=== PATIENT | female | born 1940 | race Caucasian/White ===

== ENCOUNTER 2024-06-22 18:19 | Inpatient (IN) | payer MEDICARE, SELFPAY ==
[2024-06-22] VITALS (8 sets, daily range): BP systolic 153–191; BP diastolic 59–101; PULSE 62–72; RESP 15–22; TEMP 36.6–37; O2SAT 90–99; BMI 14.1
--- NOTE | 2024-06-22 18:46 | XRR_ITS ---
PROCEDURE INFORMATION: Exam: XR Left Hip Exam date and time: 06/22/2024 7:33 PM Age: 84 years old Clinical indication: Injury or trauma; Blunt trauma (contusions or hematomas); Prior surgery; Surgery date: 6+ months; Surgery type: Hysterectomy; EMS arrival from home for fall with loc. C/O left hip pain. Denies hitting head. ; Additional info: Fall, L hip pain TECHNIQUE: Imaging protocol: Radiologic exam of the left hip. Views: 2 or 3 views hip with pelvis when performed. COMPARISON: l spine FINDINGS: Bones/joints: Left femoral neck fracture with no dislocation. There is slight superolateral displacement of the distal fragment. Soft tissues: Unremarkable. XR/XR hip LT 2-3V wo/w pel* [id number] IMPRESSION: Left femoral neck fracture with no dislocation.
--- NOTE | 2024-06-22 18:46 | CTR_ITS ---
PROCEDURE INFORMATION: Exam: CT Head Without Contrast Exam date and time: 06/22/2024 7:41 PM Age: 84 years old Clinical indication: Injury or trauma; Blunt trauma (contusions or hematomas); EMS arrival from home for fall with loc. C/O left hip pain. Denies hitting head. ; Additional info: Fall, loc TECHNIQUE: Imaging protocol: Computed tomography of the head without contrast. Radiation optimization: All CT scans at this facility use at least one of these dose optimization techniques: automated exposure control; mA and/or kV adjustment per patient size (includes targeted exams where dose is matched to clinical indication); or iterative reconstruction. COMPARISON: l spine RADIATION DOSE METRICS: Total DLP (mGy-cm): 1011.98 FINDINGS: Brain: No hemorrhage. Diffuse periventricular white matter disease indicating small vessel disease changes. No mass effect. No collections. Age related volume loss. Cerebral ventricles: No ventriculomegaly. Paranasal sinuses: No significant air-fluid levels noted in the visualized sinuses. Mastoid air cells: Mastoid air cells are aerated with no effusions. Bones: No acute osseous abnormality. Soft tissues: Unremarkable. CT/CT head wo con* [id number] IMPRESSION: No acute intracranial abnormality.
--- NOTE | 2024-06-22 19:39 | XRR_ITS ---
PROCEDURE INFORMATION: Exam: XR Chest Exam date and time: 06/22/2024 7:38 PM Age: 84 years old Clinical indication: Injury or trauma; Blunt trauma (contusions or hematomas); EMS arrival from home for fall with loc. C/O left hip pain. Denies hitting head. TECHNIQUE: Imaging protocol: Radiologic exam of the chest. Views: 1 view. COMPARISON: l spine FINDINGS: Lungs: Diffuse emphysematous changes and scarring. Scarring in the apices. 2.4 cm density projected over the right upper lobe, underlying mass can not be excluded, recommend clinical correlation and follow-up as indicated. Pleural spaces: No pleural effusion or pneumothorax noted. Heart/Mediastinum: There is no cardiomegaly. Bones/joints: No acute osseous abnormality. XR/XR chest 1V [id number] IMPRESSION: 1. No acute findings. 2. 2.4 cm density projected over the right upper lobe, underlying mass can not be excluded, recommend nonemergent CT of the chest as indicated.
--- NOTE | 2024-06-22 20:58 | W.ED.FALL ---
HPI - Fall General: Chief Complaint: Fall Stated Complaint: fall - left hip pain Time Seen by Provider: 06/22/24 18:29 History of Present Illness: This patient is an 84-year-old white female who presents to the emergency department with left hip pain after falling today. She states she fell twice after losing her balance. She denies hitting her head but thinks she may have lost consciousness. Related Data Allergies Allergy/AdvReac Type Severity Reaction Status Date / Time No Known Allergies Allergy Verified 06/22/24 18:40 Review of Systems General: Reports: 10 or more systems reviewed and unremarkable except in HPI and below Musc: Reports: other (Left hip pain/injury.) Physical Exam Const: COMMON NORMALS: no acute distress, patient oriented x3 and no limitations GENERAL APPEARANCE: cooperative and comfortable HENMT: COMMON NORMALS: normocephalic, atraumatic, Normal nasal mucous membranes and turbinates present, moist oral mucous membranes and oropharynx normal HEAD & SCALP: normal to inspection, normocephalic and atraumatic FACE & SINUS: normal facial exam NOSE: Normal nasal mucous membranes and turbinates present Eye: COMMON NORMALS: Equal, round and reactive pupils present, EOMs intact bilaterally and conjunctivae normal GENERAL EYE: appearance normal, both eyes and all related structures CONJUNCTIVA: Yes conjunctivae normal PUPIL: Yes Equal, round and reactive pupils present Neck/C-Spine: COMMON NORMALS: supple and no JVD Chest: COMMONS NORMALS: normal inspection of the chest Resp: COMMON NORMALS: normal respiratory effort and clear to auscultation bilaterally AUSCULTATION: clear to auscultation bilaterally Cardio: COMMON NORMALS: no JVD, regular rate, regular rhythm, No gallops present (Cardio), No murmurs present (Cardio) and No rub (Cardio) RATE: regular rate RHYTHM: regular rhythm GI: COMMON NORMALS: Normal to inspection, nondistended, normoactive bowel sounds present, Soft to palpation and non-tender AUSCULTATION: Yes normoactive bowel sounds PALPATION: Yes Soft to palpation : COMMON NORMALS: Yes no CVA tenderness BLADDER/KIDNEY EXAM: Yes no CVA tenderness Back/Pelvis: COMMON NORMALS: no CVA tenderness and thoracic and lumbar spine normal to inspection Extremity: NARRATIVE EXTREMITY EXAM: Significant pain with minimal range of motion of the left hip. Neuro: COMMON NORMALS: patient oriented x3 and CN's II-XII intact bilaterally Psych: COMMON NORMALS: mental status grossly normal, Normal thought process present and cooperative THOUGHT PROCESS: Normal thought process present Skin: COMMON NORMALS: no rashes or lesions noted, turgor normal and no jaundice GENERAL SKIN EXAM: no rashes or lesions noted and turgor normal Course Vital Signs: Vital signs: Vital Signs Temperature 97.9 F 06/22/24 18:29 Pulse Rate 71 06/22/24 18:29 Respiratory Rate 22 H 06/22/24 18:29 Blood Pressure 168/101 06/22/24 18:29 Pulse Oximetry 95 06/22/24 18:29 Oxygen Delivery Me thod Room Air 06/22/24 18:29 MDM - Fall Medical Decision Making X-ray of the left hip reveals a left femoral neck fracture. I discussed the case with Dr. Quiroz, orthopedist. He would like the patient admitted to the hospitalist. I then spoke with Dr. Rm. Patient will be admitted. She is stable. Head CT was read by the radiologist as normal. Chest x-ray read by the radiologist. Possible right lung mass. Lab Data Radiology Impressions Head CT 06/22/24 18:46 IMPRESSION: No acute intracranial abnormality. Hip/Pelvis X-Ray 06/22/24 18:46 IMPRESSION: Left femoral neck fracture with no dislocation. Chest X-Ray 06/22/24 19:39 IMPRESSION: 1. No acute findings. 2. 2.4 cm density projected over the right upper lobe, underlying mass can not be excluded, recommend nonemergent CT of the chest as indicated. All radiology interpretation(s) finalized by discharge Discharge Plan Discharge Condition: Stable Referrals: Lanette Almaraz APN [Primary Care Provider] - Print Language: Polish Coding Level of Care Code ED Roofing Applicator for Carroll Sy
[2024-06-22] MEDS: morphine 4 mg/mL SDV 1 mL 2 MG IVP ×2 (21:28→22:54)
[2024-06-22] MEDS: ondansetron 2 mg/ML SDV 2 mL 4 MG IVP (21:28)
--- NOTE | 2024-06-22 21:33 | PM.HP ---
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 Patient is stating that she went outside to close the gate, she was walking on the lennie surface when lost balance and fell on the ground twice. Not endorsing chest pain palpitations or syncope. She was not able to put any weight on her leg, she was brought to the ER for further evaluation where she was diagnosed with left hip fracture. Patient does not take any anticoagulating agent. Takes multi medications for her blood pressure. Currently she is hemodynamically stable, on room air, I have requested Osorio catheter placement. Clinically patient looks very dry. Review of Systems Const: Denies: fever(s) Eyes: Denies: change in vision ENMT: Denies: throat pain Card: Denies: chest pain Musc: Reports: back pain and extremity pain Medications/Allergies Home Medications ?Medication ?Instructions ?Recorded ?Confirmed ?Last Taken ?Type amlodipine 10 mg tablet 10 mg PO DAILY 06/22/24 06/22/24 Unknown History aspirin 81 mg capsule 81 mg PO DAILY 06/22/24 06/22/24 Unknown History levothyroxine 75 mcg tablet 75 mcg PO DAILY 06/22/24 06/22/24 Unknown History lorazepam 0.5 mg tablet 0.5 mg PO TID PRN Anxiety 06/22/24 06/22/24 Unknown History metoprolol succinate 50 mg 100 mg PO DAILY 06/22/24 06/22/24 Unknown History tablet,extended release 24 hr olmesartan 40 mg tablet 40 mg PO DAILY 06/22/24 06/22/24 Unknown History roflumilast 500 mcg tablet 500 mcg PO DAILY 06/22/24 06/22/24 Unknown History (Daliresp) tramadol 50 mg tablet 50 mg PO PRN 06/22/24 06/22/24 Unknown History Allergies Allergy/AdvReac Type Severity Reaction Status Date / Time No Known Allergies Allergy Verified 06/22/24 18:40 PFSH Acute PFSH: Medical History Activity involving grilling or smoking food Squamous cell lung cancer Pneumothorax Hypertension Vitals/I&O/Wt Last Vital Signs Temp 97.9 F 06/22/24 18:29 Pulse 72 06/22/24 21:31 Resp 16 06/22/24 21:31 BP 171/59 06/22/24 21:31 Pulse Ox 99 06/22/24 21:31 O2 Del Method Room Air 06/22/24 21:31 Weight last 48 hrs Weight 40.823 kg Physical Exam Narrative: Patient is awake and alert Clinically dry GCS 15 No active chest pain or shortness of breath Currently on room air hemodynamically stable Clinically dry Abdomen soft Lower extremity no edema No neurovascular compromise of left leg Family is at the bedside Appears stated age Sarcopenia Protein calorie malnourishment A&P Assessment and plan (1) Femoral neck fracture: Qualifiers: Encounter type: initial encounter Fracture type: closed Laterality: left Qualified Code(s): S72.002A - Fracture of unspecified part of neck of left femur, initial encounter for closed fracture (2) Activity involving grilling or smoking food: Plan Femoral neck fracture Ground-level fall No palpitation or chest pain No prior history of [place] CHF or PCI, no history of diabetes, does not take insulin, no sign of chronic kidney disease, RCRI class I risk Patient clinically not in any distress Stating that very active for her age, she mows her own lawn At this point no preoperative cardiac workup needed, Please note she has history of squamous cell lung cancer, few months ago suffered from pneumothorax after lung biopsy, uses 2 L of oxygen only at nighttime, no active distress doing well on room air Will request DuoNeb treatment Hypertension: Continue levothyroxine, metoprolol, amlodipine, hold olmesartan preoperative Optimize antihypertensive regimen before discharge Patient is stating that she is DNR/DNI but for sake of surgery she is okay with intubation DVT prophylaxis: SCDs Orthopedics consulted N.p.o. after midnight Opioids along bowel regimen PDMP PDMP Reviewed: Not Reviewed Attestations Medical Necessity Statement*: More than 2 midnights anticipated Diagnoses Femoral neck fracture S72.002A Encounter type: initial encounter Fracture type: closed Laterality: left Activity involving grilling or smoking food Y93.G2
[2024-06-22 23:42] LABS: Estmated Average Glucose 105; Hemoglobin A1C 5.3 % (4.0-6.0)
[2024-06-23] VITALS (21 sets, daily range): BP systolic 100–183; BP diastolic 50–90; PULSE 63–100; RESP 15–18; TEMP 36.4–37.1; O2SAT 94–100
[2024-06-23 00:03] LABS: Vitamin B12 392 pg/mL (232-1245)
[2024-06-23] MEDS: levothyroxine 75 mcg Tablet PO (06:09)
[2024-06-23] MEDS: morphine 4 mg/mL SDV 1 mL 2 MG IVP (06:09)
[2024-06-23 07:07] LABS: Basophils % 0.2 %; Eosinophils % 0.4 %; Hematocrit 34.9 % (36-47); Lymphocytes # 1.1 10^3/uL (0.8-4.8); Lymphocytes % 12.6 %; Mean Corpuscular HGB Conc 30.9 g/dL (30-55); Mean Corpuscular Hemoglobin 27.2 pg (27-33); Mean Corpuscular Volume 87.9 fl (85-98); Mean Platelet Volume 11.4 fL (7.4-10.4); Monocytes # 0.6 10^3/uL (0.2-0.9); Monocytes % 7.5 %; Neutrophils # 6.72 10^3/uL (1.8-7.7); Neutrophils % 78.8 %; Nucleated Red Blood Cells % 0 %; Platelet Count 244 10^3/cmm (157-399); Red Blood Count 3.97 10^6/uL (3.85-5.65); Red Cell Distribution Width 15.1 % (12.1-15.1); White Blood Count 8.52 10^3/uL (3.29-11.43)
[2024-06-23 07:33] LABS: Anion Gap 14.2 (5-19); Blood Urea Nitrogen 15 mg/dL (8-23); Calcium 8.7 mg/dL (8.5-10.5); Carbon Dioxide 24 mmol/L (22-29); Chloride 102 mmol/L (98-107); Glucose 119 mg/dL (65-115); Osmolality Calculated 284 mOsm/kg (285-295); Phosphorus 3.1 mg/dL (2.5-4.5); Potassium 4.2 mmol/L (3.5-5.1); Sodium 136 mmol/L (136-145)
--- NOTE | 2024-06-23 07:36 | PM.CONSULT ---
Providers/Reason For Consult Consulting Physician/Specialty*: Hospitalist Reason for Consult*: Left femoral neck fracture Attending Physician: Karrie Rm MD Primary Care Provider: Lanette Almaraz APN History of Present Illness History of Present Illness Dione Aguayo is a 84 year old female when outside to let dogs out. Which came back she fell down twice sustaining a left femoral neck fracture Medications/Allergies Home Medications ?Medication ?Instructions ?Recorded ?Confirmed ?Last Taken ?Type amlodipine 10 mg tablet 10 mg PO DAILY 06/22/24 06/22/24 Unknown History aspirin 81 mg capsule 81 mg PO DAILY 06/22/24 06/22/24 Unknown History levothyroxine 75 mcg tablet 75 mcg PO DAILY 06/22/24 06/22/24 Unknown History lorazepam 0.5 mg tablet 0.5 mg PO TID PRN Anxiety 06/22/24 06/22/24 Unknown History metoprolol succinate 50 mg 100 mg PO DAILY 06/22/24 06/22/24 Unknown History tablet,extended release 24 hr olmesartan 40 mg tablet 40 mg PO DAILY 06/22/24 06/22/24 Unknown History roflumilast 500 mcg tablet 500 mcg PO DAILY 06/22/24 06/22/24 Unknown History (Daliresp) tramadol 50 mg tablet 50 mg PO PRN 06/22/24 06/22/24 Unknown History Allergies Allergy/AdvReac Type Severity Reaction Status Date / Time No Known Allergies Allergy Verified 06/22/24 18:40 Current Medications Generic Name Dose Route Start Last Admin Trade Name Freq PRN Reason Stop Dose Admin Levothyroxine Sodium 75 mcg 06/23/24 06:00 06/23/24 06:09 Levothyroxine 75 Mcg Tablet PO 75 mcg QAM RILEY Administration Morphine Sulfate 2 mg 06/22/24 22:18 06/23/24 06:09 Morphine 4 Mg/Ml Sdv 1 Ml IVP 2 mg Q4H PRN Administration SEVERE PAIN PFSH Acute PFSH: Medical History Activity involving grilling or smoking food Squamous cell lung cancer Pneumothorax Hypertension Vitals/I&O/Wt Last Vital Signs Temp 98.7 F 06/23/24 07:00 Pulse 74 06/23/24 07:00 Resp 17 06/23/24 07:00 BP 179/77 06/23/24 07:00 Pulse Ox 97 06/23/24 07:00 O2 Del Method Nasal Cannula 06/23/24 07:00 O2 Flow Rate 2 06/23/24 07:00 06/22/24 06/23/24 06/23/24 22:59 06:59 14:59 Output Total 875 / 875 Balance -875 / -875 Weight last 48 hrs Weight 105 lb Weight 90 lb Weight 90 lb Physical Exam Narrative: Alert and oriented x 3 Head is normocephalic atraumatic Respirations are intact No evidence of any rashes or infection 5/5 strength in bilateral upper and lower extremities Sensation intact in all extremities Deep tendon reflexes 2 out of 4 bilateral upper and lower extremities Left leg shortened and externally rotated Urinary Catheter Management: Osorio: Cath Placed During This Visit: yes Reason for Continuing Indwelling Catheter: Perioperative Use in Selected Surgeries Urinary Catheter Date of Insertion: 06/22/24 Urinary Catheter Time of Insertion: 23:34 Data 06/23/24 05:50 06/23/24 05:50 A&P Assessment and plan (1) Femoral neck fracture: Plan to do a left hip hemiarthroplasty this morning. I had an open and honest discussion with the patient about the risks, benefits and alternatives to both surgical and nonsurgical treatment. The patient verbalized understanding of the inherent unpredictability associated with surgery. Risk of surgery were discussed including, but not limited to, infection, bleeding, temporary and permanent nerve damage, continued pain, stiffness, incomplete healing, need for revision surgery, blood clot and other complications. The patient verbalized understanding that there is spine is elective in nature and if they find any of these risks to be unacceptable then they should choose not to have the surgery. The patient verbalized understanding of these risks and elected to proceed with the surgery. Qualifiers: Encounter type: initial encounter Fracture type: closed Laterality: left Qualified Code(s): S72.002A - Fracture of unspecified part of neck of left femur, initial encounter for closed fracture PDMP PDMP Reviewed: Not Reviewed Coding Level of Care Code Acute Code for Chg Fwd Diagnoses Femoral neck fracture S72.002A Encounter type: initial encounter Fracture type: closed Laterality: left
[2024-06-23] MEDS: ceFAZolin 1,000 mg SDV 1000 MG IVP ×2 (07:46→16:32)
--- NOTE | 2024-06-23 07:50 | ANES.PREANE2 ---
Pre-Anesthetic Assessment Height/Weight: Height 1.7 m Weight 47.627 kg Temp Pulse Resp BP Pulse Ox O2 Del Method O2 Flow Rate 98.7 F 74 17 179/77 97 Nasal Cannula 2 06/23/24 07:00 06/23/24 07:00 06/23/24 07:00 06/23/24 07:00 06/23/24 07:00 06/23/24 07:00 06/23/24 07:00 Operation Date: 06/23/24 08:00 Proposed Procedures p Hemiarthroplasty Hip(Left) - Earle Quiroz, DO Familial anesthetic complications: None Was Beta Rosario taken within 24 hours: N/A Was Clonidine taken within 24 hours: N/A Last intake: Intake Last Liquid Date 06/22/24 Last Liquid Time 23:00 Last Solid Date 06/22/24 Social Tobacco and No alcohol Exam alert, oriented x 3, clear to auscultation bilaterally and regular rate & rhythm Airway Mallampati: Class I Dentition: other (NO teeth) Pulmonary Chronic Obstructive Pulmonary Disease (2 L O2 at night) CV/HEM Hypertension Metabolic Thyroid Disease [facility] frailty Anesthetic Plan ASA status: 3 Anesthesia: General Risk of > 500 ml blood loss (7ml/kg in children): No Medications/Allergies Home Medications ?Medication ?Instructions ?Recorded ?Confirmed ?Last Taken ?Type amlodipine 10 mg tablet 10 mg PO DAILY 06/22/24 06/22/24 Unknown History aspirin 81 mg capsule 81 mg PO DAILY 06/22/24 06/22/24 Unknown History levothyroxine 75 mcg tablet 75 mcg PO DAILY 06/22/24 06/22/24 Unknown History lorazepam 0.5 mg tablet 0.5 mg PO TID PRN Anxiety 06/22/24 06/22/24 Unknown History metoprolol succinate 50 mg 100 mg PO DAILY 06/22/24 06/22/24 Unknown History tablet,extended release 24 hr olmesartan 40 mg tablet 40 mg PO DAILY 06/22/24 06/22/24 Unknown History roflumilast 500 mcg tablet 500 mcg PO DAILY 06/22/24 06/22/24 Unknown History (Daliresp) tramadol 50 mg tablet 50 mg PO PRN 06/22/24 06/22/24 Unknown History Allergies Allergy/AdvReac Type Severity Reaction Status Date / Time No Known Allergies Allergy Verified 06/22/24 18:40 Current Medications Generic Name Dose Route Start Last Admin Trade Name Juan PRN Reason Stop Dose Admin Levothyroxine Sodium 75 mcg 06/23/24 06:00 06/23/24 06:09 Levothyroxine 75 Mcg Tablet PO 75 mcg QAM RILEY Administration Morphine Sulfate 2 mg 06/22/24 22:18 06/23/24 06:09 Morphine 4 Mg/Ml Sdv 1 Ml IVP 2 mg Q4H PRN Administration SEVERE PAIN PFSH Anesthesia Medical History Activity involving grilling or smoking food Squamous cell lung cancer Pneumothorax Hypertension Data Anesthesia 06/23/24 05:50 06/23/24 05:50 Short CBC 06/23/24 Range/Units 05:50 WBC 8.52 (3.29-11.43) 10^3/uL Hgb 10.80 L (11.27-16.99) g/dL Hct 34.9 L (36-47) % MCV 87.9 (85-98) fl Plt Count 244 (157-399) 10^3/cmm Neut % (Auto) 78.8 % Neut # (Auto) 6.72 (1.8-7.7) 10^3/uL BMP 06/23/24 05:50 Sodium 136 Potassium 4.2 Chloride 102 Carbon Dioxide 24 BUN 15 Creatinine 0.5 Glucose 119 H Calcium 8.7 Cardiac Studies: No Data to Display
[2024-06-23] MEDS: VANCOMYCIN ADD-Vantage 1,000 MG VIAL 1000 MG INTRA-ARTI (08:30)
--- NOTE | 2024-06-23 09:03 | XRR_ITS ---
PROCEDURE INFORMATION: Exam: XR Left Hip Exam date and time: 06/23/2024 8:29 AM Age: 84 years old Clinical indication: Device placement; Post op left total hip surgery; Additional info: Postsurgical, TECHNIQUE: Imaging protocol: Radiologic exam of the left hip. Views: 2 or 3 views hip with pelvis when performed. COMPARISON: CR (PELVIS, ) 06/22/2024 7:33 PM FINDINGS: Bones/joints: Post left total hip arthroplasty with components in anatomic alignment. There are mild degenerative changes in the right hip joint. Soft tissues: Expected postop soft tissue emphysema and skin ibeth. Vasculature: There are numerous benign phleboliths in the pelvis. Calcified atheromas of the visualized arteries. XR/XR hip LT 2-3V wo/w pel* [id number] IMPRESSION: Left total hip arthroplasty components are in anatomic alignment with no hardware complications.
--- NOTE | 2024-06-23 09:12 | PM.OP ---
Operative Report Date of procedure: June 23, 2024 Pre-op diagnosis: Left femoral neck fracture Post-op diagnosis: same Procedure done: Left hip hemiarthroplasty Surgeon: Earle Quiroz DO Estimated blood loss (mL): 25 Procedure: Left hip hemiarthroplasty Patient brought the op suite after a undergoing anesthesia i was placed in the lateral decubitus position with the left side up. All areas of impingement were well-padded. Patient's prepped and draped normal sterile fashion. Skin incision was made over the left lateral hip. The IT band was split. Modified Fry approach was used the abductors and capsule were taken down anteriorly. The femoral neck was exposed the femoral neck was cut 1 fingerbreadth above the lesser trochanter. The femoral head was then removed and measured to be 44 mm. Next attention was brought to prepping the femur. This was done by using a box printer followed by canal finder followed by a lateralizer. The canal was then broached to 5. A size 5 stem was inserted. Negative for neck length and a 44 mm head. Hip was reduced felt to be stable in all positions. Wounds were then irrigated. It was closed in a layered fashion closing the capsule first along with the abductors. This is done with FiberWire. IT band was closed #1 Vicryl. Skin was closed with 2-0 Vicryl and ibeth. Sterile dressings applied and patient was transferred to the PACU in stable condition.
--- NOTE | 2024-06-23 09:35 | ANE.PACU2 ---
Inpatient post-anesthesia follow up: Airway intact: Yes Vital signs: Temperature 98.4 F Pulse Rate 67 Respiratory Rate 19 Blood Pressure 167/68 Pulse Oximetry 100 Oxygen Delivery Me thod Nasal Cannula Oxygen Flow Rate 2 Fraction of Inspir ed Oxygen Hydration adequate: Yes Nausea and vomiting: No Pain level: 1 Mental status: Baseline
--- NOTE | 2024-06-23 10:08 | PC.OT ---
Addendum entered by Belgica Maya OT 06/23/24 11:46: Spoke with physical therapist who said patient is doing very well following surgery. Saw patient for evaluation today. Original Note: Received OT orders. Patient just had surgery. Will hold OT eval today.
[2024-06-23] MEDS: roflumilast 500 mcg Tablet PO (10:36)
[2024-06-23] MEDS: sennosides-docusate Tablet 2 TAB PO ×2 (10:36→19:19)
[2024-06-23] MEDS: TRAMadol 50 mg Tablet PO ×2 (13:06→19:19)
--- NOTE | 2024-06-23 14:46 | P.PN_ITS ---
Subjective 2 Subjective: Patient was seen this morning, she was seen postoperatively, alert awake, following all commands she does report smoking Vitals/I&O/Wt Last Vital Signs Temp 97.6 F 06/23/24 10:55 Pulse 77 06/23/24 14:00 Resp 16 06/23/24 14:00 BP 124/66 06/23/24 10:55 Pulse Ox 100 06/23/24 14:00 O2 Del Method Nasal Cannula 06/23/24 14:00 O2 Flow Rate 3 06/23/24 14:00 06/22/24 06/23/24 06/23/24 22:59 06:59 14:59 Intake Total 0 / 0 Output Total 875 / 875 220 / 220 Balance -875 / -875 -220 / -220 Weight last 48 hrs Weight 47.627 kg Weight 40.823 kg Weight 40.823 kg Physical Exam 2 Const: COMMON NORMALS: no acute distress and patient oriented x3 Resp: COMMON NORMALS: normal respiratory effort, No retractions, No use of accessory muscles and clear to auscultation bilaterally AUSCULTATION: clear to auscultation bilaterally Cardio: COMMON NORMALS: regular rate, regular rhythm, S1 normal heart sound present and S2 normal heart sound present RATE: regular rate RHYTHM: r egular rhythm HEART SOUNDS: S1 normal heart sound present and S2 normal heart sound present GI: COMMON NORMALS: Normal to inspection, nondistended, normoactive bowel sounds present and non-tender Extremity: COMMON NORMALS: no pedal edema Neuro: COMMON NORMALS: patient oriented x3 Psych: COMMON NORMALS: mental status grossly normal Urinary Catheter Management: Osorio: Cath Placed During This Visit: yes Reason for Continuing Indwelling Catheter: Perioperative Use in Selected Surgeries Urinary Catheter Date of Insertion: 06/22/24 Urinary Catheter Time of Insertion: 23:34 Data 06/23/24 05:50 06/23/24 05:50 A&P Assessment and plan (1) Femoral neck fracture: Qualifiers: Encounter type: initial encounter Fracture type: closed Laterality: l eft Qualified Code(s): S72.002A - Fracture of unspecified part of neck of left femur, initial encounter for closed fracture (2) Activity involving grilling or smoking food: Plan Femoral neck fracture Ground-level fall Status post surgical intervention PT OT Lovenox for DVT prophylaxis history of squamous cell lung cancer -History of pneumothorax after lung biopsy -On 2 L of oxygen only at nighttime Hypertension: Continue amlodipine Hypothyroidism continue levothyroxine Patient is stating that she is DNR/DNI DVT prophylaxis: SCDs, Lovenox Orthopedics consulted Opioids along bowel regimen PDMP PDMP Reviewed: Not Reviewed Attestations 2 Medical Necessity Statement*: Patient requires hospitalization for femoral neck fracture requiring surgical invention, Diagnoses Femoral neck fracture S72.002A Encounter type: initial encounter Fracture type: closed Laterality: left Activity involving grilling or smoking food Y93.G2
[2024-06-23] MEDS: enoxaparin 40 mg/0.4 mL Syringe SUBCUT (16:32)
[2024-06-23] MEDS: LORazepam 0.5 mg Tablet PO (20:59)
[2024-06-24] VITALS (7 sets, daily range): BP systolic 110–163; BP diastolic 61–77; PULSE 59–114; RESP 14–20; TEMP 36.6–37.1; O2SAT 90–95
[2024-06-24] MEDS: ceFAZolin 1,000 mg SDV 1000 MG IVP ×2 (01:00→09:42)
[2024-06-24] MEDS: TRAMadol 50 mg Tablet PO ×4 (01:08→18:07)
[2024-06-24 05:55] LABS: Basophils % 0.2 %; Eosinophils % 0.1 %; Hematocrit 33.1 % (36-47); Lymphocytes # 0.7 10^3/uL (0.8-4.8); Lymphocytes % 6.4 %; Mean Corpuscular HGB Conc 31.4 g/dL (30-55); Mean Corpuscular Hemoglobin 27.8 pg (27-33); Mean Corpuscular Volume 88.5 fl (85-98); Mean Platelet Volume 11.2 fL (7.4-10.4); Monocytes # 0.9 10^3/uL (0.2-0.9); Monocytes % 8.5 %; Neutrophils # 8.75 10^3/uL (1.8-7.7); Neutrophils % 84.2 %; Nucleated Red Blood Cells % 0 %; Platelet Count 231 10^3/cmm (157-399); Red Blood Count 3.74 10^6/uL (3.85-5.65); Red Cell Distribution Width 15.2 % (12.1-15.1); White Blood Count 10.39 10^3/uL (3.29-11.43)
[2024-06-24 06:12] LABS: Alanine Aminotransferase 9 U/L (0-33); Albumin Level 3.3 g/dL (3.5-5.2); Alkaline Phosphatase 99 U/L (35-105); Anion Gap 13.9 (5-19); Aspartate Amino Transferase 18 U/L (0-32); Blood Urea Nitrogen 12 mg/dL (8-23); Calcium 8.7 mg/dL (8.5-10.5); Carbon Dioxide 23 mmol/L (22-29); Chloride 100 mmol/L (98-107); Globulin 3.2 g/dL (1.3-4.6); Glucose 136 mg/dL (65-115); Magnesium 1.8 mg/dL (1.7-2.3); Osmolality Calculated 278 mOsm/kg (285-295); Phosphorus 2.4 mg/dL (2.5-4.5); Potassium 3.9 mmol/L (3.5-5.1); Sodium 133 mmol/L (136-145); Total Bilirubin 0.4 mg/dL (0.15-1.2); Total Protein 6.5 g/dL (6.6-8.7)
[2024-06-24] MEDS: levothyroxine 75 mcg Tablet PO (06:22)
[2024-06-24 06:43] LABS: Bilirubin Urine Negative (Negative); Blood Urine 1+ (Negative); Glucose Urine UA Negative (Normal); Ketones Urine Negative (Negative); Leukocyte Esterase Urine Negative (Negative); Nitrate Urine Negative (Negative); Protein Urine Trace (Negative); Urine Appearance Clear (CLEAR); Urine Color Yellow (Yellow); Urobilinogen Urine 0.2 mg/dL (Negative); pH Urine 5.5 (5-7)
[2024-06-24 06:48] LABS: Add Urine Microscopic? YES; Bacteria Urine None Seen /hpf; Hyaline Casts Urine 2.05 /lpf; RBC Urine 21-50 /hpf (0-2); Squamous Epithelial Cell Urine 0-5 /hpf (0-5)
[2024-06-24] MEDS: ipratropium-albuterol 3 mL Neb INHALATION (08:33)
[2024-06-24] MEDS: amlodipine 10 mg Tablet PO (09:43)
[2024-06-24] MEDS: sennosides-docusate Tablet 2 TAB PO ×2 (09:43→18:06)
[2024-06-24] MEDS: roflumilast 500 mcg Tablet PO (09:43)
[2024-06-24] MEDS: metoprolol succinate ER (24 HR) 100 mg Tablet PO (09:43)
[2024-06-24] MEDS: aspirin 81 mg EC Tablet PO (09:57)
--- NOTE | 2024-06-24 13:03 | P.PN_ITS ---
Subjective 2 Subjective: Patient is postop day 1 of left hip hemiarthroplasty. She was up to the chair she is now back in bed. Vitals/I&O/Wt Last Vital Signs Temp 97.8 F 06/24/24 12:08 Pulse 88 06/24/24 12:08 Resp 16 06/24/24 12:08 BP 130/74 06/24/24 12:08 Pulse Ox 91 06/24/24 12:08 O2 Del Method Room Air 06/24/24 12:08 O2 Flow Rate 2 06/23/24 14:55 06/23/24 06/24/24 06/24/24 22:59 06:59 14:59 Intake Total 120 / 120 720 / 720 Output Total 650 / 870 Balance 120 / -100 -650 / -750 720 / 720 Weight last 48 hrs Weight 101 lb 3.2 oz Weight 105 lb Weight 90 lb Weight 90 lb Physical Exam 2 Narrative: Patient sitting comfortably in bed. Urinary Catheter Management: Osorio: Cath Placed During This Visit: yes, but has since been removed by the nurse Reason for Continuing Indwelling Catheter: Perioperative Use in Selected Surgeries Urinary Catheter Date of Insertion: 06/22/24 Urinary Catheter Time of Insertion: 23:34 Date Urinary Catheter Removed: 06/24/24 Time Urinary Catheter Discontinued: 06:30 Data 06/24/24 05:22 06/24/24 05:22 A&P Assessment and plan (1) Femoral neck fracture: Postop day #1 left hip hemiarthroplasty Qualifiers: Encounter type: initial encounter Fracture type: closed Laterality: l eft Qualified Code(s): S72.002A - Fracture of unspecified part of neck of left femur, initial encounter for closed fracture PDMP PDMP Reviewed: Not Reviewed Attestations 2 Medical Necessity Statement*: Per primary service Coding Level of Care Code Acute Code for Chg Fwd Diagnoses Femoral neck fracture S72.002A Encounter type: initial encounter Fracture type: closed Laterality: left
--- NOTE | 2024-06-24 13:43 | P.PN_ITS ---
Subjective 2 Subjective: Patient was seen this morning, he denies any fevers, no chills, no nausea, no vomiting, no pain Vitals/I&O/Wt Last Vital Signs Temp 97.8 F 06/24/24 12:08 Pulse 88 06/24/24 12:08 Resp 16 06/24/24 12:08 BP 130/74 06/24/24 12:08 Pulse Ox 91 06/24/24 12:08 O2 Del Method Room Air 06/24/24 12:08 O2 Flow Rate 2 06/23/24 14:55 06/23/24 06/24/24 06/24/24 22:59 06:59 14:59 Intake Total 120 / 120 720 / 720 Output Total 650 / 870 Balance 120 / -100 -650 / -750 720 / 720 Weight last 48 hrs Weight 45.904 kg Weight 47.627 kg Weight 40.823 kg Weight 40.823 kg Physical Exam 2 Const: COMMON NORMALS: no acute distress and patient oriented x3 Resp: COMMON NORMALS: normal respiratory effort, No retractions, No use of accessory muscles and clear to auscultation bilaterally AUSCULTATION: clear to auscultation bilaterally Cardio: COMMON NORMALS: regular rate, regular rhythm, S1 normal heart sound present and S2 normal heart sound present RATE: regular rate RHYTHM: r egular rhythm HEART SOUNDS: S1 normal heart sound present and S2 normal heart sound present GI: COMMON NORMALS: Normal to inspection, nondistended, normoactive bowel sounds present and non-tender Extremity: COMMON NORMALS: no pedal edema Neuro: COMMON NORMALS: patient oriented x3 Psych: COMMON NORMALS: mental status grossly normal Urinary Catheter Management: Osorio: Cath Placed During This Visit: yes, but has since been removed by the nurse Reason for Continuing Indwelling Catheter: Perioperative Use in Selected Surgeries Urinary Catheter Date of Insertion: 06/22/24 Urinary Catheter Time of Insertion: 23:34 Date Urinary Catheter Removed: 06/24/24 Time Urinary Catheter Discontinued: 06:30 Data 06/24/24 05:22 06/24/24 05:22 A&P Assessment and plan (1) Femoral neck fracture: Qualifiers: Encounter type: initial encounter Fracture type: closed Laterality: l eft Qualified Code(s): S72.002A - Fracture of unspecified part of neck of left femur, initial encounter for closed fracture (2) Activity involving grilling or smoking food: Plan Femoral neck fracture Ground-level fall Status post surgical intervention PT OT Lovenox for DVT prophylaxis history of squamous cell lung cancer -History of pneumothorax after lung biopsy -On 2 L of oxygen only at nighttime Hypertension: Continue amlodipine Hypothyroidism continue levothyroxine Patient is stating that she is DNR/DNI DVT prophylaxis: SCDs, Lovenox Orthopedics consulted Opioids along bowel regimen PDMP PDMP Reviewed: Not Reviewed Attestations 2 Medical Necessity Statement*: Patient requires hospitalization for femoral neck fracture Diagnoses Femoral neck fracture S72.002A Encounter type: initial encounter Fracture type: closed Laterality: left Activity involving grilling or smoking food Y93.G2
[2024-06-24] MEDS: enoxaparin 40 mg/0.4 mL Syringe SUBCUT (14:28)
[2024-06-25] MEDS: TRAMadol 50 mg Tablet PO ×2 (03:53→12:18)
[2024-06-25 04:00] VITALS: BP 163/69; PULSE 72; RESP 17; TEMP 37; O2SAT 97
[2024-06-25 05:37] LABS: Basophils % 0.2 %; Eosinophils % 0.2 %; Hematocrit 30.7 % (36-47); Lymphocytes # 0.8 10^3/uL (0.8-4.8); Lymphocytes % 7.6 %; Mean Corpuscular HGB Conc 31.3 g/dL (30-55); Mean Corpuscular Hemoglobin 27.4 pg (27-33); Mean Corpuscular Volume 87.5 fl (85-98); Mean Platelet Volume 11.2 fL (7.4-10.4); Monocytes # 0.8 10^3/uL (0.2-0.9); Monocytes % 7.6 %; Neutrophils # 9.26 10^3/uL (1.8-7.7); Neutrophils % 83.5 %; Nucleated Red Blood Cells % 0 %; Platelet Count 251 10^3/cmm (157-399); Red Blood Count 3.51 10^6/uL (3.85-5.65); Red Cell Distribution Width 15.4 % (12.1-15.1); White Blood Count 11.08 10^3/uL (3.29-11.43)
[2024-06-25 06:03] LABS: Alanine Aminotransferase 7 U/L (0-33); Albumin Level 3.2 g/dL (3.5-5.2); Alkaline Phosphatase 98 U/L (35-105); Anion Gap 14.3 (5-19); Aspartate Amino Transferase 18 U/L (0-32); Blood Urea Nitrogen 13 mg/dL (8-23); Carbon Dioxide 24 mmol/L (22-29); Chloride 97 mmol/L (98-107); Globulin 3.3 g/dL (1.3-4.6); Glucose 113 mg/dL (65-115); Magnesium 1.9 mg/dL (1.7-2.3); Osmolality Calculated 273 mOsm/kg (285-295); Phosphorus 2.5 mg/dL (2.5-4.5); Potassium 4.3 mmol/L (3.5-5.1); Sodium 131 mmol/L (136-145); Total Bilirubin 0.7 mg/dL (0.15-1.2); Total Protein 6.5 g/dL (6.6-8.7)
[2024-06-25] MEDS: levothyroxine 75 mcg Tablet PO (06:29)
[2024-06-25 07:40] VITALS: BP 167/68; PULSE 67; RESP 19; TEMP 36.9; O2SAT 100
[2024-06-25] MEDS: roflumilast 500 mcg Tablet PO (08:59)
[2024-06-25] MEDS: amlodipine 10 mg Tablet PO (09:00)
[2024-06-25] MEDS: sennosides-docusate Tablet 2 TAB PO (09:00)
[2024-06-25] MEDS: aspirin 81 mg EC Tablet PO (09:00)
[2024-06-25] MEDS: metoprolol succinate ER (24 HR) 100 mg Tablet PO (09:00)
[2024-06-25 10:33] VITALS: PULSE 71; RESP 16; O2SAT 93
--- NOTE | 2024-06-25 11:48 | P.DS_ITS ---
Discharge Providers Date of Admission: 06/22/24 21:10 Date of Discharge: June 25, 2024 Attending Provider at Admission: Karrie Rm MD Attending Provider at Discharge: Clement Mesa MD Consults: Orthopedics: Dr. Quiroz Primary Care Provider: Lanette Almaraz APN Diagnoses at Discharge Discharge Diagnosis (1) Femoral neck fracture: Status: Acute Qualifiers: Encounter type: initial encounter Fracture type: closed Laterality: left Qualified Code(s): S72.002A - Fracture of unspecified part of neck of left femur, initial encounter for closed fracture (2) Activity involving grilling or smoking food: Status: Acute (3) Hypertension: Status: Acute Reason for Visit Reason for Visit: fall - left hip pain Brief History: History as per HPI: Dione Aguayo is a 84 year old female with history of squamous cell cancer opted out for chemo and radiotherapy, active smoker smokes 2 packs/day, uses 2 L of oxygen at bedtime, active for her age hypertension, hypothyroidism, no history of NH CHF or PCI presented after sustaining a fall. Patient is stating that she went outside to close the gate, she was walking on the lennie surface when lost balance and fell on the ground twice. Not endorsing chest pain palpitations or syncope. She was not able to put any weight on her leg, she was brought to the ER for further evaluation where she was diagnosed with left hip fracture. Patient does not take any anticoagulating agent. Takes multi medications for her blood pressure. Currently she is hemodynamically stable, on room air, I have requested Osorio catheter placement. Clinically patient looks very dry. Hospital Course Hospital Course Patient was admitted to the hospital further evaluation and management of femoral neck fracture. Orthopedics was consulted and she underwent ORIF on 06/23. Her hospital stay was unremarkable. She worked well with physical therapy. Safe discharge plan were discussed in detail with patient and patient's family members. She has been discharged home with home health for further rehabitation. She is to check her blood pressure daily at home maintain a blood pressure diary and follow-up with a primary care provider within next 1 week for further adjustment of antihypertensive as needed. Physical Exam Const: COMMON NORMALS: no acute distress and patient oriented x3 Resp: COMMON NORMALS: normal respiratory effort, No retractions, No use of accessory muscles and clear to auscultation bilaterally AUSCULTATION: clear to auscultation bilaterally Cardio: COMMON NORMALS: regular rate, regular rhythm, S1 normal heart sound present and S2 normal heart sound present RATE: regular rate RHYTHM: regular rhythm HEART SOUNDS: S1 normal heart sound present and S2 normal heart sound present GI: COMMON NORMALS: Normal to inspection, nondistended, normoactive bowel sounds present and non-tender Extremity: COMMON NORMALS: no pedal edema Neuro: COMMON NORMALS: patient oriented x3 Psych: COMMON NORMALS: mental status grossly normal Urinary Catheter Management: Osorio: Cath Placed During This Visit: yes, but has since been removed by the nurse Reason for Continuing Indwelling Catheter: Perioperative Use in Selected Surgeries Urinary Catheter Date of Insertion: 06/22/24 Urinary Catheter Time of Insertion: 23:34 Date Urinary Catheter Removed: 06/24/24 Time Urinary Catheter Discontinued: 06:30 Discharge Data Studies Completed and Pending Completed Studies During Hospitalization Category Date Time Status CT head wo con* [id number] Stat Cat Scan 06/22/24 18:46 Completed XR chest 1V [id number] Stat Exams 06/22/24 19:39 Completed XR hip LT 2-3V wo/w pel* [id number] Routine Exams 06/23/24 09:03 Completed XR hip LT 2-3V wo/w pel* [id number] Stat Exams 06/22/24 18:46 Completed Pending at discharge Category Date Time Status Complete Blood Count w/Auto AM LABS Lab 06/26/24 04:00 Ordered Comprehensive Metabolic Panel AM LABS Lab 06/26/24 04:00 Ordered Magnesium AM LABS Lab 06/26/24 04:00 Ordered Phosphorus AM LABS Lab 06/26/24 04:00 Ordered TIBC [Total Iron Binding Capacity] Routine Lab 06/25/24 11:40 Ordered Thyroid Stimulating Hormone Stat Lab 06/25/24 11:40 Ordered Radiology Impressions Head CT 06/22/24 18:46 IMPRESSION: No acute intracranial abnormality. Chest X-Ray 06/22/24 19:39 IMPRESSION: 1. No acute findings. 2. 2.4 cm density projected over the right upper lobe, underlying mass can not be excluded, recommend nonemergent CT of the chest as indicated. Hip/Pelvis X-Ray 06/23/24 09:03 IMPRESSION: Left total hip arthroplasty components are in anatomic alignment with no hardware complications. Laboratory Results WBC 11.08 10^3/uL (3.29-11.43) 06/25/24 05:11 RBC 3.51 10^6/uL (3.85-5.65) L 06/25/24 05:11 Hgb 9.60 g/dL (11.27-16.99) L 06/25/24 05:11 Hct 30.7 % (36-47) L 06/25/24 05:11 MCV 87.5 fl (85-98) 06/25/24 05:11 MCH 27.4 pg (27-33) 06/25/24 05:11 MCHC 31.3 g/dL (30-55) 06/25/24 05:11 RDW 15.4 % (12.1-15.1) H 06/25/24 05:11 Plt Count 251 10^3/cmm (157-399) 06/25/24 05:11 MPV 11.2 fL (7.4-10.4) H 06/25/24 05:11 Neut % (Auto) 83.5 % 06/25/24 05:11 Lymph % (Auto) 7.6 % 06/25/24 05:11 [place] % (Auto) 7.6 % 06/25/24 05:11 Eos % (Auto) 0.2 % 06/25/24 05:11 Baso % (Auto) 0.2 % 06/25/24 05:11 Neut # (Auto) 9.26 10^3/uL (1.8-7.7) H 06/25/24 05:11 Lymph # (Auto) 0.8 10^3/uL (0.8-4.8) 06/25/24 05:11 [place] # (Auto) 0.8 10^3/uL (0.2-0.9) 06/25/24 05:11 Eos # (Auto) 0.0 10^3/uL (0.0-0.8) 06/25/24 05:11 Baso # (Auto) 0.0 10^3/uL (0.0-0.1) 06/25/24 05:11 Nucleated RBC % (auto) 0 % 06/25/24 05:11 Nucleated RBCs # 0.0 /100WBC 06/25/24 05:11 Sodium 131 mmol/L (136-145) L 06/25/24 05:11 Potassium 4.3 mmol/L (3.5-5.1) 06/25/24 05:11 Chloride 97 mmol/L (98-107) L 06/25/24 05:11 Carbon Dioxide 24 mmol/L (22-29) 06/25/24 05:11 Anion Gap 14.3 (5-19) 06/25/24 05:11 BUN 13 mg/dL (8-23) 06/25/24 05:11 Creatinine 0.5 mg/dL (0.5-0.9) 06/25/24 05:11 GFR Calculation Not Reportable 06/25/24 05:11 Glucose 113 mg/dL (65-115) 06/25/24 05:11 Estimat Average Glucose 105 06/22/24 23:14 Hemoglobin A1c 5.3 % (4.0-6.0) 06/22/24 23:14 Calculated Osmolality 273 mOsm/kg (285-295) L 06/25/24 05:11 Calcium 9.0 mg/dL (8.5-10.5) 06/25/24 05:11 Phosphorus 2.5 mg/dL (2.5-4.5) 06/25/24 05:11 Magnesium 1.9 mg/dL (1.7-2.3) 06/25/24 05:11 Total Bilirubin 0.7 mg/dL (0.15-1.2) 06/25/24 05:11 AST 18 U/L (0-32) 06/25/24 05:11 ALT 7 U/L (0-33) 06/25/24 05:11 Alkaline Phosphatase 98 U/L (35-105) 06/25/24 05:11 Total Protein 6.5 g/dL (6.6-8.7) L 06/25/24 05:11 Albumin 3.2 g/dL (3.5-5.2) L 06/25/24 05:11 Globulin 3.3 g/dL (1.3-4.6) 06/25/24 05:11 Vitamin B12 392 pg/mL (232-1245) 06/22/24 23:14 Urine Color Yellow (Yellow) 06/24/24 06:32 Urine Appearance Clear (CLEAR) 06/24/24 06:32 Urine pH 5.5 (5-7) 06/24/24 06:32 Ur Specific [place] 1.020 (1.005-1.030) 06/24/24 06:32 Urine Protein Trace (Negative) A 06/24/24 06:32 Urine Glucose (UA) Negative (Normal) 06/24/24 06:32 Urine Ketones Negative (Negative) 06/24/24 06:32 Urine Blood 1+ (Negative) A 06/24/24 06:32 Urine Nitrate Negative (Negative) 06/24/24 06:32 Urine Bilirubin Negative (Negative) 06/24/24 06:32 Urine Urobilinogen 0.2 mg/dL (Negative) 06/24/24 06:32 Ur Leukocyte Esterase Negative (Negative) 06/24/24 06:32 Urine RBC 21-50 /hpf (0-2) H 06/24/24 06:32 Urine WBC 6-10 /hpf (0-5) 06/24/24 06:32 Ur Squamous Epith Cells 0-5 /hpf (0-5) 06/24/24 06:32 Amorphous Sediment Not Reportable 06/24/24 06:32 Urine Bacteria None seen /hpf (NONE) 06/24/24 06:32 Hyaline Casts 2.05 /lpf 06/24/24 06:32 Vitals Last Vital Signs Temp 98.4 F 06/25/24 07:40 Pulse 71 06/25/24 10:33 Resp 16 06/25/24 10:33 BP 167/68 06/25/24 07:40 Pulse Ox 93 06/25/24 10:33 O2 Del Method Room Air 06/25/24 10:33 O2 Flow Rate 2 06/23/24 14:55 Discharge Plan Discharge Patient Disposition: Home Condition: Stable Prescriptions: Continued metoprolol succinate 50 mg tablet extended release 24 hr 100 mg PO DAILY tramadol 50 mg tablet 50 mg PO PRN levothyroxine 75 mcg tablet 75 mcg PO DAILY lorazepam 0.5 mg tablet 0.5 mg PO TID PRN (Reason: Anxiety) amlodipine 10 mg tablet 10 mg PO DAILY olmesartan 40 mg tablet 40 mg PO DAILY roflumilast [Daliresp] 500 mcg Tablet 500 mcg PO DAILY aspirin 81 mg Capsule 81 mg PO DAILY Discharge Orders: Discharge Order (Routine); Ordered 06/25/24 Ordered By: Clement Mesa Referrals: Earle Quiroz DO [Physician] - 07/05/24 10:45 am Almaraz,MARY Gama [Primary Care Provider] - 07/02/24 2:20 pm Discharge Diet: Cardiac Discharge Activity: Resume usual activity and Increase activity as tolerated Patient Instructions: Acute Wound Care (DC), Precautions after Total Joint Replacement Surgery (DC), Total Hip Replacement (DC), Hip Abduction Pillow (DC), Opioid Safety, Post Anesthesia Care Activity Restrictions/Additional Instructions: Please check your blood pressure daily at home maintain a blood pressure diary. Goal blood pressure is between 100 to 140 mmHg. Follow-up with a primary care provider within next 1 week with a blood pressure diary for further adjustment of medications. You are being discharged from the hospital today during which time you have been under the care of Dr. Quiroz. You had a left femoral neck fracture. You were treated for this injury with left hip hemiarthroplasty. You may resume you normal diet (including any special diets as directed by your primary doctor) as well as your home medications. You should follow up with you primary doctor if you have any questions regarding medication you took prior to your stay in the hospital. You may take your pain medication as prescribed. After the first few days, take your pain medication as needed. Do not drive or drink alcohol while taking your pain medication. Your injury may increase your risk of developing a blood clot,or DVT, in your arm or leg. This could potentially dislodge and travel to your lungs and become a life threatening condition called a pulmonary embolus,or PE. You have been prescribed aspirin to be taken to prevent this. Frequent movement of the legs will also help prevent this from occurring. If you develop any new or worsening cough, chest pain, bloody sputum or shortness of breath, call 911 or go to the Emergency Room. Always keep your surgical incision/dressing clean and dry. If you experience increasing pain at your incision site, redness, swelling, increasing discharge, foul odors, or fevers (greater than 100.4), night sweats or chills you should call the office at the above number. If you feel this is an emergency you should be evaluated in the Emergency Department of a nearby hospital. Orthopedic Patient Instructions Summary: Weight Bearing: Weight-bear as tolerated Activity: As tolerated. Diet: Regular. Wound Care: Keep dressing clean and dry. Anticoagulation: Aspirin Pain Medication: Take only as needed. Ice, rest and elevation will be of great benefit. Please plan to follow-up wlth Dr Quiroz in 2 weeks. You will need to call the clinic [phone] to schedule this visit. Thank you far allowing me to participate in your care. Do not hesitate to call the office with any questions or concerns. Discharge Attestations Time Spent in Discharge Care*: greater than 30 min Specific Discharge Activities: educating patient, educating and/or supporting family/caregiver, discussing with pcp/other providers, discussing with case management social worker/social workers/dc planners, documenting/other paperwork and evaluating patient/reviewing data Status at Discharge: Cognitive status at discharge: cognitively intact , Behavioral status at discharge: cooperative , Functional status at discharge: uses cane/walker , Overall status at discharge: patient is progressing back to baseline Quality Metrics Clinical Quality Measures [ No reported AMI, CVA or VTE this stay] Coding Level of Care Code 66513 Total time (in minutes) for Discharge: 60 Diagnoses Femoral neck fracture S72.002A Encounter type: initial encounter Fracture type: closed Laterality: left Activity involving grilling or smoking food Y93.G2 Hypertension I10
[2024-06-25 12:23] LABS: Iron 14 ug/dL (37-145); Percent Saturation 5.1 % (20-50); Total Iron Binding Capacity 273 mcg/dl; Unsaturated Iron Binding 259 ug/dL (112-347)
[2024-06-25 13:31] VITALS: BP 142/64; PULSE 70; O2SAT 93
== END 2024-06-25 13:32 | disposition home health service (06) | DRG 522 ==
LOC: ER 21:12 → MEDSURG 21:26
PROVIDERS: Family Medicine; Orthopaedic Surgery; Admitting Provider Internal Medicine; Emergency Provider Emergency Medicine; PCP Nurse Practitioner Family; Visit Provider Student in an Organized Health Care Education/Training Program
PROC: 0SRS01Z Replacement of Left Hip Joint, Femoral Surface with Metal Synthetic Substitute, Open Approach (ICD-10-PCS; principal; 2024-06-23 08:00)
DX: S72.002A Fracture of unspecified part of neck of left femur, initial encounter for closed fracture (principal); E46 Unspecified protein-calorie malnutrition; Z68.1 Body mass index [BMI] 19.9 or less, adult; E03.9 Hypothyroidism, unspecified; Z66 Do not resuscitate; M62.84 Sarcopenia; I10 Essential (primary) hypertension; F17.210 Nicotine dependence, cigarettes, uncomplicated; J44.9 Chronic obstructive pulmonary disease, unspecified; W01.0XXA Fall on same level from slipping, tripping and stumbling without subsequent striking against object, initial encounter; Z99.81 Dependence on supplemental oxygen; Z79.899 Other long term (current) drug therapy; Z79.82 Long term (current) use of aspirin; Z79.890 Hormone replacement therapy; Z85.118 Personal history of other malignant neoplasm of bronchus and lung
CPT/HCPCS: 36415; 51702; 70450; 71045; 73501; 73502; 80048; 80053; 81001; 82607; 83036; 83540; 83550; 83735; 84100; 84443; 85025; 94640; 94664; 96372; 96374; 96375; 97116; 97161; 97165; 97530; 99285; C1776; J0690; J1100; J1650; J2270; J2371; J2405; J2704; J3010; J3370; J3490; J9999

== ENCOUNTER → 2024-07-05 10:51 | Outpatient (BNVA) | payer MEDICARE, SELFPAY | PROVIDERS: PCP Nurse Practitioner Family; Visit Provider Orthopaedic Surgery | DX: S72.002A Fracture of unspecified part of neck of left femur, initial encounter for closed fracture (principal); X58.XXXA Exposure to other specified factors, initial encounter | CPT/HCPCS: 73502; 99024 ==

== ENCOUNTER → 2024-07-31 13:06 | Outpatient (BNVA) | payer MEDICARE, SELFPAY | PROVIDERS: PCP Nurse Practitioner Family; Visit Provider Orthopaedic Surgery | DX: S72.002A Fracture of unspecified part of neck of left femur, initial encounter for closed fracture (principal); X58.XXXA Exposure to other specified factors, initial encounter | CPT/HCPCS: 73502; 99024 ==

== ENCOUNTER → 2024-09-11 08:16 | Outpatient (BNVA) | payer MEDICARE, SELFPAY | PROVIDERS: PCP Nurse Practitioner Family; Visit Provider Orthopaedic Surgery | DX: S72.002A Fracture of unspecified part of neck of left femur, initial encounter for closed fracture (principal); X58.XXXA Exposure to other specified factors, initial encounter | CPT/HCPCS: 73502; 99024 ==